=== PATIENT | male | born 1995 | race Caucasian/White ===

== ENCOUNTER 2023-07-12 22:32 | Emergency (ER) | payer BC, SELFPAY ==
[2023-07-12 22:38] VITALS: BP 139/83; PULSE 84; RESP 18; TEMP 36.7; O2SAT 99; BMI 20.9
--- NOTE | 2023-07-12 23:00 | ED_ITS ---
HPI - General Adult General Chief complaint: Unspecified Complaint, Adult Stated complaint: withdrawl, abdominal pain Time Seen by Provider: 07/12/23 22:36 Source: patient Mode of arrival: EMS Limitations: no limitations History of Present Illness HPI narrative: 27-year-old male coming in today complaining of a benzodiazepine withdrawal. He states that he has had hot and cold sweats all day. Patient tells me that he is on 4 mg of Klonopin every day and he was weaned down from 8 mg approximately 1 month ago. The dose has been unchanged. He is asking for a refill today. At 1st he tells me that he has extra as because his dose was cut down a month ago. When I tell him that I do not understand why he would need a refill when he tells me that he has extra tablets, he tells me that he believes his family members are stealing his medications. He states that he took a dose this morning and then when he looked back at his bottle later in the day it ?looked different? he states that ?I did not count them but it did not look the same?. He tells me that he is not sure how many tablets he has but he is concerned that he will run out before his next refill. He tells me also that his doctor is on vacation for the next 2 weeks and is not available. He tells me that he has not called the clinic to ask for a refill yet. He also tells me that he is an opioid withdrawal. He states that he takes Kratom, and he weaned himself off of it recently. He states his last dose of Kratom was 4 days ago. This is what he states is causing his opioid withdrawal. Patient tells me that he does have a mental health team which consists of the therapist and a psychiatrist. But he states that he does not feel that they are taking appropriate care of him. Patient also has chronic abdominal pain and history of ulcerative colitis. He states that he was told that he has a ?cut in my intestinal system? and that ?I may have cancer with metastasis.? He comes to the ER today because he called the nurse line and he was told to get checked out for withdrawal symptoms however he should call an ER that can find him a ride home. He states that he was told that our ER provides were voucher so and that is why he chose to come here. Patient denies any feelings of homicide. He is not suicidal. Denies any thoughts of self-harm or harming others. Patient also states that he is on Ambien, pramipexole and gabapentin. Related Data Home Medications Medication Instructions Recorded Confirmed clonazepam 2 mg tablet 2 mg PO BID PRN 10/22/22 07/12/23 gabapentin 600 mg tablet 1,200 mg PO BID 10/22/22 07/12/23 pramipexole 1 mg tablet 1 mg PO QPM 07/12/23 07/12/23 zolpidem 10 mg tablet 10 mg PO QPM PRN insomnia 07/12/23 07/12/23 Allergies Allergy/AdvReac Type Severity Reaction Status Date / Time No Known Drug Allergies Allergy Verified 07/12/23 22:43 Review of Systems Status of ROS: Reports: 10 or more systems reviewed and unremarkable except as noted in History and below Exam Narrative: Exam Narrative: Thin, well-developed patient in no acute distress. Alert and oriented x3. Answers questions appropriately. Mood is normal, affect is somewhat flat. Patient speaks in full sentences without needing to catch their breath. GCS is 15. Vitals are completely normal. Patient is not diaphoretic, tremulous or j ittery. HEENT: Normocephalic atraumatic. Pupils are equally round reactive to light. Extraocular muscles are intact. Conjunctivae are moist without any icterus noted. Moist mucous membranes. Posterior pharynx is normal. Neck is soft without any lymphadenopathy or thyromegaly. No masses are appreciated. Pupils are not pinpoint or dilated. Cardiovascular: Heart is regular rate and rhythm S1 and S2 are present without any murmurs. Lungs: Clear to auscultation bilaterally no wheezes rhonchi or rales are appreciated. Patient takes deep breaths without any discomfort. Abdomen: Soft and nondistended with normal bowel sounds. He has mild nonspecific discomfort diffusely. No peritoneal signs. Extremities: Bilateral lower extremities are without edema. Normal DP and PT pulses. Skin: Visualized skin is well perfused with COVID B rashes. Const: Vital Signs, click to edit/add: Vital Signs - 24 hr 07/12/23 22:38 Temperature 98.0 F Pulse Rate [Right Pulse Oximeter] 84 Respiratory Rate 18 Blood Pressure [Ri ght Upper Arm] 139/83 Pulse Oximetry 99 Oxygen Delivery Me thod Room Air Course Vital Signs Vital signs: Initial Vital Signs Temperature 98.0 F 07/12/23 22:38 Temperature Source Temporal Artery Scan 07/12/23 22:38 Pulse Rate 84 07/12/23 22:38 Respiratory Rate 18 07/12/23 22:38 Blood Pressure 139/83 07/12/23 22:38 Blood Pressure Mean 101 07/12/23 22:38 Blood Pressure Position Sitting 07/12/23 22:38 Pulse Oximetry 99 07/12/23 22:38 Oxygen Delivery Method Room Air 07/12/23 22:38 Vital Signs Temperature 98.0 F 07/12/23 22:38 Pulse Rate 84 07/12/23 22:38 Respiratory Rate 18 07/12/23 22:38 Blood Pressure 139/83 07/12/23 22:38 Pulse Oximetry 99 07/12/23 22:38 Oxygen Delivery Method Room Air 07/12/23 22:38 Temperature 98.0 F 07/12/23 22:38 Pulse Rate 84 07/12/23 22:38 Respiratory Rate 18 07/12/23 22:38 Blood Pressure 139/83 07/12/23 22:38 Pulse Oximetry 99 07/12/23 22:38 Oxygen Delivery Method Room Air 07/12/23 22:38 Medical Decision Making MDM Narrative Medical decision making narrative: 27-year-old male requesting benzodiazepine refills. We discussed that this is not something we do out of the ER. I did ask him to call his clinic on Saturday and if they are not open, to call on Saturday to request to speak to the team that is covering for his physician who is out of town. Patient does state that he has enough benzodiazepines to get him through the next week. Patient does not appear to be in active withdrawal during our evaluation today. I do think that he is safe to go home. He assures me that he feels safe. And again has a team of providers. I request that he return to the ER should any of these things change. Discharge Plan Discharge Clinical Impression: Abdominal pain Patient Disposition: Home, Self-Care Condition: Stable Additional Instructions: Call your doctor's clinic 1st thing Saturday or Saturday if they are not available during the weekend and request to speak to the team of nurses or doctors who are covering for your doctor until they return from vacation. They can answer any questions and refill your medications as needed. Prescriptions: No Action clonazepam 2 mg tablet 2 mg PO BID PRN gabapentin 600 mg tablet 1,200 mg PO BID pramipexole 1 mg tablet 1 mg PO QPM zolpidem 10 mg tablet 10 mg PO QPM PRN (Reason: insomnia) Follow Up/Referrals: Theodore Martell MD [Primary Care Provider] - Stand Alone Forms: [employer] Info Instructions
--- OUTSIDE RECORDS SUMMARY | 2023-07-12 23:21 | XMS_ITS | Encounter Summary ---
Author Name Unknown Organization [facility] Address [address] [place] [address] Care Team Providers Care In Service Coordinator Name Role Phone Theodore Martell MD Primary Care Provider [phone] Encounter Details Date Type Department Care Team (Latest Contact Info) Description 05/30/1997 Orders Only Benny Elliott MD Social History Tobacco Use Types Packs/Day Years Used Date Smoking Tobacco: Never Assessed Sex and Gender Information Value Date Recorded Sex Assigned at Not on file Gender Identity Not on file Sexual Orientation Not on file documented as of this encounter Plan of Treatment Not on file documented as of this encounter Visit Diagnoses Not on filedocumented in this encounter Care Teams In Service Coordinator Relationship Specialty [place] [address] [place] [address] PCP - General Family Practice 02/27/22 documented as of this encounter
--- OUTSIDE RECORDS SUMMARY | 2023-07-12 23:21 | XMS_ITS | Clinical Summary ---
Author Name Unknown Organization [facility] Address [address] [place] [address] Care Team Providers Care [employer] Teacher Name Role Phone Clinic, [facility] Primary Care Provider Allergies No known active allergies Medications Medication Sig Dispensed Refills Start Date End Date Status LORazepam (ATIVAN) 1 MG tablet Take 1 tablet (1 mg) by mouth every 8 hours as needed for anxiety or other (Withdrawal) Do not drink alcohol or drive if you take this medication - Oral 6 tablet 0 09/28/2017 Active Additional Information Patient not taking.Reported on 10/03/2017 ramelteon (ROZEREM) 8 MG tabletIndications:I nsomnia, unspecified type Take 1 tablet (8 mg) by mouth At Bedtime 30 tablet 0 10/03/2017 Active ondansetron (ZOFRAN ODT) 4 MG ODT tab Take 1 tablet (4 mg) by mouth every 8 hours as needed for nausea 15 tablet 0 09/13/2021 Active Active Problems Problem Noted Date Diagnosed Date CHASITY (generalized anxiety disorder) 08/29/2017 Alcohol dependence with unsp ecified alcohol-induced disorder 08/29/2017 Chest pain 10/05/2014 Anxiety Immunizations Name Administration Dates Next Due TDAP Vaccine (Adacel) 03/22/2011 Family History Medical History Relation Comments Family History Negative Father Family History Negative Mother Relation Status Comments Father Alive Mother Alive Social History Tobacco Use Types Packs/Day Years Used Date Smoking Tobacco: Every Day Cigarettes 0.3 Smokeless Tobacco: Never Tobacco Cessation:Ready to Q uit: Yes; Counseling Given: Yes Comments:trying to quit Alcohol Use Standard Drinks/Week Comments Yes 0 (1 standard drink = 0.6 oz pur e alcohol) .5 L daily PHQ-2 Answer Date Recorded PHQ-2 Score 0 04/15/2018 Adolescent Education Answer Date Record ed Getting School Help Needed Not on file 01/06 Sex and Gender Information Value Date Recorded Sex Assigned at Not on file Gender Identity Not on file Sexual Orientation Not on file Last Filed Vital Signs Vital Sign Reading Time Taken Comments Blood Pressure 127/91 02/07/2022 12:59 PM CDT Pulse 103 02/07/2022 12:59 PM CDT Temperature 36.7 ??C (98.1 ??F) 02/07/2022 12:59 PM C DT Respiratory Rate 20 02/07/2022 12:59 PM CDT Oxygen Saturation 98% 02/07/2022 12:59 PM CDT Inhaled Oxygen Concentration - - Weight 77.1 kg (170 lb) 02/07/2022 12:59 PM CDT Height 180.3 cm (5' 11) 02/07/2022 12:59 PM CDT Body Mass Index 23.71 02/07/2022 12:59 PM CDT Plan of Treatment Health Maintenance Due Date Last Done Comments ADVANCE CARE PLANNING 1993 ANNUAL REVIEW OF HM ORDERS 1993 YEARLY PREVENTIVE VISIT 1993 Pneumococcal Vaccine: Pediatrics (0 to 5 Years) and At-Risk Patients (6 to 64 Years) (1 of 2 - PCV) 10/31/1999 HIV SCREENING 2008 HEPATITIS C SCREENING 10/31/2011 DTAP/TDAP/TD IMMUNIZATION (7 - Td or Tdap) 03/22/2021 03/22/2011, 11/29/2010, 11/29/2010, Additional history exists COVID-19 Vaccine (1 - season) 2022 INFLUENZA VACCINE (#1) 2022 PHQ-2 (once per calendar year) 2023 08/29/2017, 08/29/2017, 04/10/2016, Additional history exists HEPATITIS B IMMUNIZATION Completed 999, 06/21/1998, 03/14/1994, Additional history exists IPV IMMUNIZATION Completed 06/21/1998, , 05/09/1994, Additional history exists HPV IMMUNIZATION Aged Out No longer e ligible based on patient's age to complete this topic MENINGITIS IMMUNIZATION Aged Out No l onger eligible based on patient's age to complete this topic RSV MONOCLONAL ANTIBODY Aged Out No l onger eligible based on patient's age to complete this topic Advance Directives For more information, please contact: [phone] Latest Code Status on File Code Status Date Activated Date Inactivated Comments Full Code 10/06/2014 11:59 AM 09/13/2021 1:55 PM Code Status History Code Status Date Activated Date Inactivated Comments Full Code 10/06/2014 12:18 AM 10/06/2014 11:59 AM Care Teams [employer] Teacher Relationship Specialty Start Date End Date Clinic, [facility] [address] [place] [address] PCP - General 10/30/14
--- OUTSIDE RECORDS SUMMARY | 2023-07-12 23:21 | XMS_ITS | Encounter Summary ---
Author Name Unknown Organization [facility] Address [address] [place] [address] Care Team Providers Care Interface Analyst Name Role Phone Theodore Martell MD Primary Care Provider [phone] Reason for Visit * Reason Comments Refill propranolol (INDERAL ) 10 MG tablet [Pharmacy Med Name: Propranolol HCl 10 MG Oral Tablet] Encounter Details Date Type Department Care Team (Late st Contact Info) Description 06/17/2023 Refill [facility] [address] [place] [address] Leisa Watt DO [address] [place], [place] [id number] Refill (propranolol (INDERAL) 10 MG tablet [Pharmacy Med Name: Propranolol HCl 10 MG Oral Tablet]) Social History Tobacco Use Types Packs/Day Years Used Date Smoking Tobacco: Every Day Cigarettes 0.3 8.1 Started: 05/29/2015 Smokeless Tobacco: Never Alcohol Use Standard Drinks/Week Comments Yes 0 (1 standard drink = 0.6 oz pur e alcohol) 2 drinks/week Sex and Gender Information Value Date Recorded Sex Assigned at Not on file Gender Identity Not on file Sexual Orientation Not on file documented as of this encounter Nursing Notes * Arminda Quiñonez - 07/01/2023 10:29 AM CDT Medication Refill - Due for Visit Medication still pending, patient is due to be seen in the next 30 days. Called patient, was: unable to reach patient. 2nd call attempted. Unsuccessful in reaching patient. Frontline Action: Route to clinician identified in nursing documentation below. Clinician Action: Unsuccessful in reaching patient to schedule, requests refill. Please determine whether refill is appropriate. Recommend using ???Refuse All?? quick action to address request. * Arminda Quiñonez - 06/24/2023 2:05 PM CDT Medication Refill - Due for Visit Medication still pending, patient is due to be seen in the next 30 days. Called patient, was: unable to reach patient. 1st call attempted. Left message to call back. Scheduling Action: Patient needs to schedule an appointment in the next 30 days. If able to schedule, please document date of appointment and route to clinician/pool identified in nursing documentation below. * Isabel Alejandre RN - 06/18/2023 5:45 PM CDT Further Assistance Needed on Refill from Service Desk Associate Patient is due for Qualifying Visit Medication is still pending. Patient is due for a Office/Video Visit in the next 30 days. Call Patient and document using .AMPARO. After attempting to schedule patient: Please route to: Christie Watt or covering provider. Requested Prescriptions Pending Prescriptions Disp Refills propranolol (INDERAL) 10 MG tablet [Pharmacy Med Name: Propranolol HCl 10 MG Oral Tablet] 90 Tablet0 Sig: TAKE 1 TABLET BY MOUTH THREE TIMES DAILY * Veronica Guzman Xrwcomm - 06/17/2023 9:45 AM CDT propranolol (INDERAL) 10 MG tablet [Pharmacy Med Name: Propranolol HCl 10 MG Oral Tablet] Medication started: 09/20/2021 Last ordered by LEISA WATT A: 03/21/2022 (453 days ago) QTY: 270, Refills: 2, Sig: take 1 tablet by mouth three times daily (unchanged) -> An office visit is overdue (performed over 21 months ago, required every 12 months). Last qualifying visit: 09/20/2021 (with LEISA WATT) Next scheduled visit: None [facility] [employer] Embedded Refills, Reference: [id number], 06/17/2023 9:45:24 AM CDT, Pool: LUCIA Refill Centralized Services - Primary Care [[id number]] ([id number]) documented in this encounter Plan of Treatment Not on file documented as of this encounter Visit Diagnoses Diagnosis Anxiety (HRC) Anxiety state, unspecified documented in this encounter Care Teams Interface Analyst Relationship Specialty [place] [address] [place] [address] PCP - General Family Practice 02/27/22 documented as of this encounter
--- OUTSIDE RECORDS SUMMARY | 2023-07-12 23:21 | XMS_ITS | Clinical Summary ---
Author Name Unknown Organization [facility] Address [address] [place] [address] Care Team Providers Care Early Childhood Name Role Phone Theodore Martell MD Primary Care Provider [phone] Source Comments You are receiving this document as you are listed as the primary care provider,follow-up provider, or the patient has been referred to you for consultation.This is in compliance with the Medicare and[facility] Cent[facility]aid EHR Incentive Program,which states Providers who transition their patient to another setting of careor provider of care or refers their patient to another provider of care shouldprovide summary care record for each transition of care or referral. Delta ID Allergies Active Allergy Reactions Criticality Noted Date Comments Ondansetron Nausea 06/13/2015 Medications Medication Sig Dispensed Refills Start Date End Date Status Multiple Vitamin (MULTI-VITAMIN OR) Take by mouth. 06/13/2015 Ac tive sertraline (AKA ZOLOFT) 50 MG tabletIndications:A nxiety (HRC),Panic disorder (HRC),Depression, major, single episode, mild (HRC) Take 25mg daily x 1 week, then 50mg daily x 2 weeks, then 100mg daily thereafter. Indications: ANXIETY WITH DEPRESSION 60 tablet 1 06/13/2015 Active acetaminophen (TYLENOL) 325 MG tablet Take 2 Tabs by mouth every 4 hours as needed for Pain. 30 Tab 0 04/29/2016 Active escitalopram (LEXAPRO) 10 MG tabletIndications:A nxiety (HRC) Take 1 Tablet (10 mg) by mouth daily. 90 Tablet 3 09/20/2021 Active Temazepam (RESTORIL) 30 MG capsuleIndications: Anxiety (HRC) Take 1 Capsule (30 mg) by mouth at bedtime as needed for Sleep. 30 Capsule 09/20/2021 Active clonazePAM (KLONOPIN) 1 MG tabletIndications:P anic disorder (HRC) Take 2 Tablets (2 mg) by mouth daily as needed for Anxiety. 60 Tablet 09/20/2021 Active propranolol (INDERAL) 10 MG tabletIndications:A nxiety (HRC) TAKE 1 TABLET BY MOUTH THREE TIMES DAILY 270 Tablet 2 03/21/2022 Active Active Problems Problem Noted Date Diagnosed Date Attention deficit disorder 02/27/2010 Anxiety Panic disorder Tobacco abuse Encounters Date Type Department Care Team Description 06/17/[address] [id number] Leisa Watt DO Refill (propranolol (INDERAL) 10 MG tablet [Pharmacy Med Name: Propranolol HCl 10 MG Oral Tablet]) from Last 3 Months Immunizations Name Administration Dates Next Due TDAP (ADACEL) 03/22/2011 Family History Medical History Relation Name Comments Anxiety Mother Relation Name Status Comments Mother Social History Tobacco Use Types Packs/Day Years [...] Sign Reading Time Taken Comments Blood Pressure 123/82 02/27/2022 9:44 PM MVA REACTOR OPERATOR HEAD Pulse 90 02/27/2022 9:44 PM MVA REACTOR OPERATOR HEAD Temperature 36.7 ??C (98.1 ??F) 02/27/2022 1 0:01 PM MVA REACTOR OPERATOR HEAD Respiratory Rate 20 02/27/2022 9:44 PM MVA REACTOR OPERATOR HEAD Oxygen Saturation 100% 02/27/2022 9:4 4 PM MVA REACTOR OPERATOR HEAD Inhaled Oxygen Concentration - - Weight 67.9 kg (149 lb 12.8 oz) 016 1:42 PM MVA REACTOR OPERATOR HEAD Height 176.5 cm (5' 9.5) 02/27/2010 3: 24 PM MVA REACTOR OPERATOR HEAD C: 176.5cm Body Mass Index - - Plan of Treatment Health Maintenance Due Date Last Done Comments Hep C Screening (Preventive Services) 1993 Pneumococcal (1 - PCV) 10/31/1999 Adult Preventive Visit 10/31/2011 HepB (1) 2012 DTaP/Tdap/Td (7 - Tdap) 03/22/2021 03/22/20 11, 11/29/2010, 11/29/2010, Additional history exists COVID-19 Vaccine (1 - 2022- season) 2022 Influenza (#1) 2022 Zoster/Shingles (1 of 2) 10/31/2043 Hib Completed 06/20/1995, 10/1993, 01/17/1994 IPV (Polio) Completed 06/21/1998, 06/06, 05/09/1994, Additional history exists HIV Screening (Preventive Services) Completed 06/14/2015 HPV Vaccine Aged Out No longer eligi ble based on patient's age to complete this topic HepA Aged Out No longer eligi ble based on patient's age to complete this topic MCV4 Aged Out No longer eligi ble based on patient's age to complete this topic Procedures Procedure Name Priority Date/Time Associated Diagnosis Comments HIV-1 P24 AND HIV-1/HIV-2 ANTIBODIES Routine 06/14/2015 10:38 AM MVA REACTOR OPERATOR HEAD Lymphadenopathy from Last 3 Months or Most Recently Relevant to Health Maintenance Results * HIV-1 P24 AND HIV-1/HIV-2 ANTIBODIES (06/14/2015 10:38 AM MVA REACTOR OPERATOR HEAD) HIV-1 p24 Ag and HIV-1/HIV-2 Ab Nonreactive Non-React sharad HP CONVERSION 06/14/2015 10:3 8 AM MVA REACTOR OPERATOR HEAD 06/14/2015 4:19 PM MVA REACTOR OPERATOR HEAD Narrative HP CONVERSION - 06/14/2015 7:07 PM MVA REACTOR OPERATOR HEAD Performed at [address] [address] CLIA number [id number] Mary Beth Whiting MD LAB_1 HP CONVERSION from Last 3 Months or Most Recently Relevant to Health Maintenance Care Teams Early Childhood Relationship Specialty [place] [address] [place] [address] PCP - General Family Practice 02/27/22
--- OUTSIDE RECORDS SUMMARY | 2023-07-12 23:21 | XMS_ITS | Referral Summary ---
Author Name Unknown Organization [facility] Address [address] [place] [address] Care Team Providers Care Operations Team Leader Name Role Phone Clinic, [facility] Primary [...] Dates Next Due TDAP Vaccine (Adacel) 03/22/2011 Social History Tobacco Use Types Packs/Day Years [...] 02/07/2022 12:59 PM CDT Plan of Treatment Not on file Advance Directives For more information, please contact: [phone] Latest Code Status on File Code Status Date Activated Date Inactivated Comments Full Code 10/06/2014 11:59 AM 09/13/2021 1:55 PM Code Status History Code Status Date Activated Date Inactivated Comments Full Code 10/06/2014 12:18 AM 10/06/2014 11:59 AM Care Teams Operations Team Leader Relationship Specialty Start Date End Date Clinic, [facility] [address] [place] [address] PCP - General 10/30/14
--- OUTSIDE RECORDS SUMMARY | 2023-07-12 23:21 | XMS_ITS | Encounter Summary ---
Author Name Unknown Organization [facility] Address [address] [place] [address] Care Team Providers Care Baseball Player Name Role Phone Clinic, [facility] Primary Care Provider Reason for Visit * Reason Onset Date Comments [facility] 08/07/2022 Encounter Details Date Type Department Care Team ([facility] st Contact Info) Description 08/07/2022 Telephone [facility] Intake [address] [place] [address] Generic, Behavioral Intake, [facility] Social History Tobacco Use Types Packs/Day Years Used Date Smoking Tobacco: Every Day Cigarettes 0.3 Smokeless Tobacco: Never Comments:trying to quit Alcohol Use Standard Drinks/Week Comments Yes 0 (1 standard drink = 0.6 oz pur e alcohol) .5 L daily PHQ-2 Answer Date Recorded PHQ-2 Score 0 04/15/2018 Sex and Gender Information Value Date Recorded Sex Assigned at Not on file Gender Identity Not on file Sexual Orientation Not on file documented as of this encounter Miscellaneous Notes * Telephone Encounter - Link Simon - 08/07/2022 2:57 PM CDT Receipt of 14 page fax for screening of lodging plus. Clinical has been uploaded to [employer], pdf created and sent to Caitlyn Delgado for purposes of review. No cover sheet on fax, Unknown sender, Agency is [facility]. documented in this encounter Plan of Treatment Not on file documented as of this encounter Visit Diagnoses Not on filedocumented in this encounter Additional Health Concerns Assessment Noted Time PHQ-9 Depression Total Score: 6 08/31/19 18 7:10 AM CDT documented as of this encounter Care Teams Baseball Player Relationship Specialty Start Date End Date Clinic, [facility]ak [address] [address] PCP - General 10/30/14 documented as of this encounter
[2023-07-12 23:30] VITALS: BP 124/79; PULSE 79; RESP 18; TEMP 36.7; O2SAT 99
[2023-07-13] VITALS: RESP 16; O2SAT 99
== END 2023-07-12 23:30 | disposition home or self-care (01) ==
LOC: ED 23:19
PROVIDERS: Emergency Provider Family Medicine; PCP Family Medicine
DX: R10.9 Unspecified abdominal pain (principal); F13.20 Sedative, hypnotic or anxiolytic dependence, uncomplicated
CPT/HCPCS: 99283